=== PATIENT | female | born 1945 | race Caucasian/White ===

== ENCOUNTER 2022-09-10 12:01 | Emergency (ER) | payer MEDICARE, OTHER ==
--- NOTE | 2022-09-10 12:39 | XRAY Report ---
PROCEDURE: Chest 2 View X-Ray INDICATIONS: SOA/COUGHING NON PRODUCTIVE TECHNIQUE: 2 views of the chest were acquired. COMPARISON: None. FINDINGS: Surgical changes and devices: None. Lungs and pleura: No pleural effusions or pneumothorax. Lungs are clear. Mediastinum: Mediastinal contours appear normal. Heart size is normal. Large retrocardiac hiatal hernia present. Mild vascular congestion Bones and chest wall: No suspicious bony lesions. Overlying soft tissues appear unremarkable. IMPRESSION: Mild vascular congestion. Large retrocardiac hiatal hernia Reviewed by: Brandon Stinson MD on 09/10/2022 11:38 AM PATRIZIA Approved by: Brandon Stinson MD on 09/10/2022 11:38 AM PATRIZIA Station ID: [id number]
--- NOTE | 2022-09-10 15:09 | ED Physician Documentation ---
History of Present Illness - Stated complaint Stated Complaint: SOA - Chief complaint Chief Complaint: Resp - Additonal information Additional information: This is a very plesant 76-year-old female who has a history of asthma, chronic bronchitis, pulmonary hypertension presents to the emergency department for evaluation of worsening shortness of air, cough and ankle swelling. These worsening symptoms have been present now for about a week. Patient recently moved to [facility] 1 month ago from [facility]. She reports that while there she found that she was getting progressively short of air and they found that she was very anemic. In order to diagnose a cause for the anemia she underwent a colonoscopy July 11 which was negative. She subsequently received iron transfusions for the anemia. She has not scheduled an appointment with a primary doctor at the beginning of October. She did go to our local walk-in clinics for evaluation of the shortness of air and was started on doxycycline on the . She went back today because the doxycycline had not improved her symptoms and she was referred to the ER. Meds: Symbicort, fluticasone, DuoNebs, albuterol, Viagra, atorvastatin, losartan, pantoprazole Review of Systems Constitutional: denies: Fever Ears: reports: Reviewed and negative Nose: reports: Reviewed and negative Cardiac: denies: Chest pain / pressure, Palpitations Respiratory: reports: Dyspnea, Cough. denies: Hemoptysis, Wheezing GI: reports: Reviewed and negative : reports: Reviewed and negative Skin: reports: Reviewed and negative Musculoskeletal: reports: Reviewed and negative Neurologic: reports: Reviewed and negative PD PAST MEDICAL HISTORY - Past Medical History Past Medical History: Yes Cardiovascular: Hypertension, High cholesterol Respiratory: Asthma, COPD Neuro: None Endocrine/Autoimmune: None GI: GERD MATCH MARKER: None : Incontinence HEENT: None Psych: None Musculoskeletal: None Derm: None - Past Surgical History Past Surgical History: Yes - Allergies Allergies/Adverse Reactions: Allergies Allergy/AdvReac Type Severity Reaction Status Date / Time clarithromycin [From Biaxin] AdvReac Unknown Verified 09/10/22 12:16 dexamethasone AdvReac Unknown Verified 09/10/22 12:17 levofloxacin [From Levaquin] AdvReac Unknown Verified 09/10/22 12:16 sertraline [From Zoloft] AdvReac Unknown Verified 09/10/22 12:17 Sulfa (Sulfonamide AdvReac Unknown Verified 09/10/22 12:17 Antibiotics) Tricyclic Antidepressants AdvReac Unknown Verified 09/10/22 12:18 and Tricy - Social History Does the pt smoke?: No Smoking Status: Never smoker Does the pt drink ETOH?: Yes Does the pt have substance abuse?: No - Immunizations Immunizations are current?: Yes - POLST Patient has POLST: No PD ED PE NORMAL - General General: Alert and oriented X 3, No acute distress. No: Well developed/nourished (Appears much older than stated age) - HEENT HEENT: Atraumatic - Neck Neck: Supple, no meningeal sign - Cardiac Cardiac: RRR, No murmur, Strong equal pulses - Respiratory Respiratory: No respiratory distress, Clear bilaterally - Abdomen Abdomen: Normal bowel sounds, Soft - Back Back: No CVA TTP - Derm Derm: Normal color, Warm and dry - Extremities Extremities: No deformity - Neuro Neuro: Alert and oriented X 3, wire inserter 2-12 intact Eye Opening: Spontaneous Motor: Obeys Commands Verbal: Oriented GCS Score: 15 Results - Vitals Vitals: Vital Signs - 24 hr 09/10/22 09/10/22 12:06 14:48 Temperature 36.6 C Heart Rate 76 Respiratory 20 19 Rate Blood Pressure 127/47 L O2 Saturation 99 Oxygen O2 Source Room air - EKG (time done) 1526 EKG releavant findings:: EKG personally interpreted by author of this note. Relevant findings are: Rate: Rate (enter#) (69) Rhythm: NSR [place]: Normal Intervals: No: Prolonged QT QRS: Normal Ischemia: Non specific changes Compare to prior EKG: Old EKG unavailable Computer interpretation: Agree with computer - Labs Labs: Laboratory Tests 09/10/22 09/10/22 09/10/22 15:22 15:22 15:22 WBC 11.0 H RBC 2.98 L Hgb 7.5 L Hct 24.5 L MCV 82.2 MCH 25.2 L MCHC 30.6 L RDW 15.9 H Plt Count 351 MPV 11.2 H Neut # (Auto) 9.8 H Lymph # (Auto) 1.0 L [place] # (Auto) 0.1 Eos # (Auto) 0.0 Baso # (Auto) 0.0 Absolute Nucleated RBC 0.00 Nucleated RBC % 0.0 Sodium 133 L Potassium 3.9 Chloride 104 Carbon Dioxide 23 Anion Gap 6.0 BUN 30 H Creatinine 0.8 Estimated GFR (MDRD) 70 L Glucose 127 H Calcium 8.8 Total Bilirubin 0.5 AST 23 ALT 22 Alkaline Phosphatase 70 Troponin I High Sens 5.5 B-Natriuretic Peptide Total Protein 7.3 Albumin 3.8 Globulin 3.5 Albumin/Globulin Ratio 1.1 Lipase 27 09/10/22 15:22 WBC RBC Hgb Hct MCV MCH MCHC RDW Plt Count MPV Neut # (Auto) Lymph # (Auto) [place] # (Auto) Eos # (Auto) Baso # (Auto) Absolute Nucleated RBC Nucleated RBC % Sodium Potassium Chloride Carbon Dioxide Anion Gap BUN Creatinine Estimated GFR (MDRD) Glucose Calcium Total Bilirubin AST ALT Alkaline Phosphatase Troponin I High Sens B-Natriuretic Peptide 121 H Total Protein Albumin Globulin Albumin/Globulin Ratio Lipase - Rads (name of study) 2v CXR Relevant Findings:: Final report received (Mild vascular congestion. Large retrocardiac hiatal hernia.) PD Medical Decision Making - ED course Complexity details: reviewed results, re-evaluated patient, d/w patient ED course: [id number] female was referred to the emergency department for evaluation of dyspnea. She does have a known history of pulmonary hypertension. She also has known chronic bronchitis. Was recently started on doxycycline. She is scheduled to establish with a PCP tomorrow. She was told before she moved to [facility] that she had anemia and she underwent a colonoscopy that showed no evidence of bleeding or polyps. Today in the emergency department a chest x-ray was obtained that showed no findings of pneumonia though she has a large hiatal hernia. A CBC and electrolytes were completed. Per my interpretation she has a marked anemia with a hemoglobin of 7.5 and a crit of 24.5. Normal platelets. Her electrolytes show a sodium of 133 and a BUN of 30. Normal creatinine. Her BNP is mildly elevated at 12, likely secondary to pulmonary HTN. I suspect the patient does have some degree of right-sided heart failure she has small amount of pitting edema in her ankles. However her room air saturations are 99% and clinically she does not warrant admission to the hospital. I did offer the patient a blood transfusion for hemoglobin of 7.5 but she declined that today as she is seeing her primary care doctor tomorrow. I discussed with her that she would need referral to pulmonology, cardiology and hematology all for evaluation of the anemia and further management of her pulmonary hypertension. She and her were comfortable with this plan and the usual emergent return precautions for worsening symptoms were discussed. Departure - Departure Disposition: 01 Home, Self Care Clinical Impression: History of pulmonary hypertension Dyspnea Qualifiers: Dyspnea type: unspecified Qualified Code(s): R06.00 - Dyspnea, unspecified Anemia Qualifiers: Anemia type: unspecified type Qualified Code(s): D64.9 - Anemia, unspecified Condition: Stable Comments: Tammi horan are seen today in the emergency department for shortness of air. You do have a history of pulmonary hypertension as well as chronic bronchitis. When you were living in [place] you were told that you are anemic and you received an iron transfusion. I do not have access to your labs in [place] but today your hemoglobin is 7.5. Because you have had a normal colonoscopy and your iron levels were normal its not clear what the cause of your anemia is but you do need referral to a veterinary science teacher/oncologist for this. You are offered a blood transfusion today in the emergency department and you have declined that. You will see your primary care doctor tomorrow. If at any point however you find that your shortness of air is worsening, you develop chest pain or have fainting episodes you must return immediately to the ER and a transfusion can be ordered. Because of your history of pulmonary hypertension you would benefit from referral to a starch cooker and/or a power manager. Please discuss this with your primary care doctor tomorrow. In the meantime you can continue to take all your other usual medications. Forms: PCP List
[2022-09-10 15:29] LABS: BASOPHILS % (AUTO) 0.2 %; HCT - HEMATOCRIT 24.5 % (37.0-47.0); HGB - HEMOGLOBIN 7.5 g/dL (12.0-16.0); LYMPHOCYTES % (AUTO) 9.2 %; MEAN CORPUSCULAR HEMOGLOBIN 25.2 pg (27.0-31.0); MEAN CORPUSCULAR HGB CONC 30.6 g/dL (32.0-36.0); MEAN CORPUSCULAR VOLUME 82.2 fL (81.0-99.0); MEAN PLATELET VOLUME 11.2 fL (7.9-10.8); MONOCYTES # (AUTO) 0.1 10^3/uL (0.0-1.0); MONOCYTES % (AUTO) 1.1 %; NEUTROPHILS # (AUTO) 9.8 10^3/uL (1.5-6.6); NEUTROPHILS % (AUTO) 89.1 %; PLT - PLATELET COUNT 351 10^3/uL (130-450); RED BLOOD COUNT 2.98 10^6/uL (4.20-5.40); RED CELL DISTRIBUTION WIDTH 15.9 % (12.0-15.0)
[2022-09-10 15:43] LABS: ALBUMIN 3.8 g/dL (3.2-5.5); ALBUMIN/GLOBULIN RATIO 1.1 (1.0-2.2); BILIRUBIN,TOTAL 0.5 mg/dL (0.2-1.0); CALCIUM 8.8 mg/dL (8.5-10.3); CREATININE 0.8 mg/dL (0.4-1.0); POTASSIUM 3.9 mmol/L (3.5-5.0); TOTAL PROTEIN 7.3 g/dL (6.7-8.2)
[2022-09-10 16:23] VITALS: BP 153/71
== END 2022-09-10 16:21 | disposition home or self-care (01) ==
LOC: ED 12:01
DX: I27.20 Pulmonary hypertension, unspecified (principal); R06.00 Dyspnea, unspecified; D64.9 Anemia, unspecified
CPT/HCPCS: 36415; 80053; 83690; 83880; 84484; 85025; 93005; 99284

== ENCOUNTER 2022-09-11 16:09 | Outpatient (CLI) | payer MEDICARE, OTHER ==
[2022-09-11 20:52] LABS: BASOPHILS % (AUTO) 0.2 %; HCT - HEMATOCRIT 24.2 % (37.0-47.0); HGB - HEMOGLOBIN 7.4 g/dL (12.0-16.0); LYMPHOCYTES # (AUTO) 1.2 10^3/uL (1.5-3.5); LYMPHOCYTES % (AUTO) 12.9 %; MEAN CORPUSCULAR HEMOGLOBIN 25.2 pg (27.0-31.0); MEAN CORPUSCULAR HGB CONC 30.6 g/dL (32.0-36.0); MEAN CORPUSCULAR VOLUME 82.3 fL (81.0-99.0); MEAN PLATELET VOLUME 12.5 fL (7.9-10.8); MONOCYTES # (AUTO) 0.3 10^3/uL (0.0-1.0); MONOCYTES % (AUTO) 2.7 %; NEUTROPHILS % (AUTO) 83.9 %; PLT - PLATELET COUNT 409 10^3/uL (130-450); RED BLOOD COUNT 2.94 10^6/uL (4.20-5.40); WHITE BLOOD COUNT 9.5 x10^3/uL (4.8-10.8)
[2022-09-11 20:57] LABS: ALBUMIN/GLOBULIN RATIO 1.1 (1.0-2.2); ALKALINE PHOSPHATASE 71 IU/L (42-121); ALT ALANINE AMINOTRANSFERASE 15 IU/L (10-60); AST ASPARTATE AMINOTRANSFERASE 14 IU/L (10-42); BILIRUBIN,TOTAL 0.3 mg/dL (0.2-1.0); BUN - BLOOD UREA NITROGEN 33 mg/dL (6-20); CALCIUM 9.5 mg/dL (8.5-10.3); CARBON DIOXIDE - CO2 26 mmol/L (21-32); CHLORIDE 103 mmol/L (101-111); CHOL/HDL RATIO 2.3 (<4.4); CHOLESTEROL 174 mg/dL; CREATININE 0.9 mg/dL (0.6-1.3); GFR - MDRD 61 (>89); GLUCOSE 132 mg/dL (74-104); HDL CHOLESTEROL 75 mg/dL; LDL CHOLESTEROL,CALCULATED 82 mg/dL; LDL/HDL RATIO 1.1 (<4.4); POTASSIUM 4.7 mmol/L (3.5-4.5); SODIUM 132 mmol/L (135-145); TOTAL PROTEIN 7.5 g/dL (6.4-8.9); TRIGLYCERIDES 83 mg/dL (48-352); VLDL CHOLESTEROL 17 mg/dL
[2022-09-11 22:12] LABS: ESTIMATED AVERAGE GLUCOSE 111 mg/dL (70-100); HEMOGLOBIN A1c% 5.5 % (4.27-6.07)
[2022-09-12 11:35] LABS: IRON < 10 ug/dL (50-212); TOTAL IRON BINDING CAPACITY 668 ug/dL (250-450); TRANSFERRIN 477 mg/dL (203-362)
[2022-09-12 11:56] LABS: FERRITIN 3.3 ng/mL (11.0-306.8)
== END 2022-09-11 16:10 | disposition home or self-care (01) ==
LOC: LAB.N 16:09
PROVIDERS: ATTEND Nurse Practitioner Family
DX: D64.9 Anemia, unspecified (principal); E11.69 Type 2 diabetes mellitus with other specified complication; E11.22 Type 2 diabetes mellitus with diabetic chronic kidney disease; N18.9 Chronic kidney disease, unspecified; I27.0 Primary pulmonary hypertension; E78.2 Mixed hyperlipidemia
CPT/HCPCS: 36415; 80053; 80061; 82728; 83036; 83540; 83721; 84443; 84466; 85025; 86900; 86901

== ENCOUNTER 2022-09-12 14:29 | Emergency (ER) | payer MEDICARE, OTHER ==
--- NOTE | 2022-09-12 15:21 | ED Physician Documentation ---
History of Present Illness - Stated complaint Stated Complaint: SOA/WEAKNESS - Chief complaint Chief Complaint: General - History obtained from History obtained from: Patient - History of Present Illness Timing: How many days ago (several) Pain level max: 0 Pain level now: 0 - Additonal information Additional information: Patient is a 76-year-old female who presents to the emergency department stating that she has had a history of anemia in the past and had iron infusions when living in [place]. She states that over the past several days she has become short of breath and feeling generally weak. Her hemoglobin was down to 7.4 yesterday, 7.5 the day before that. She is scheduled for an iron infusion to [place] but feels that she is too weak and too short of breath. She is here requesting a blood transfusion. She states she has had a normal colonoscopy, endoscopy and CT scans with no cause found. Review of Systems Constitutional: denies: Fever, Chills GI: denies: Vomiting, Diarrhea Skin: denies: Rash Musculoskeletal: denies: Neck pain, Back pain Neurologic: denies: Headache PD PAST MEDICAL HISTORY - Past Medical History Cardiovascular: Hypertension, High cholesterol Respiratory: Asthma, COPD Neuro: None Endocrine/Autoimmune: None GI: GERD CATERING [place]: None : Incontinence HEENT: None Psych: None Musculoskeletal: None Derm: None - Past Surgical History Past Surgical History: Yes - Present Medications Home Medications: Ambulatory Orders Medication Instructions Recorded Confirmed Albuterol Sulfate [Proair 1 - 2 puffs IH Q4HR PRN 09/12/22 09/12/22 Respiclick] Atorvastatin Calcium 40 mg PO HS 09/12/22 09/12/22 Fluticasone [Flonase] 1 sprays NORM DAILY 09/12/22 09/12/22 Ipratropium/Albuterol [Duoneb] 3 ml INH BID 09/12/22 09/12/22 Losartan [Cozaar] 50 mg PO BID 09/12/22 09/12/22 Montelukast [Singulair] 10 mg PO DAILY 09/12/22 09/12/22 Pantoprazole [Protonix] 40 mg PO DAILY 09/12/22 09/12/22 Sildenafil Citrate [Sildenafil] 20 mg PO TID 09/12/22 09/12/22 - Allergies Allergies/Adverse Reactions: Allergies Allergy/AdvReac Type Severity Reaction Status Date / Time clarithromycin [From Biaxin] AdvReac Unknown Verified 09/12/22 14:33 dexamethasone AdvReac Unknown Verified 09/12/22 14:33 levofloxacin [From Levaquin] AdvReac Unknown Verified 09/12/22 14:33 sertraline [From Zoloft] AdvReac Unknown Verified 09/12/22 14:33 Sulfa (Sulfonamide AdvReac Unknown Verified 09/12/22 14:33 Antibiotics) Tricyclic Antidepressants AdvReac Unknown Verified 09/12/22 14:33 and Tricy - Social History Does the pt smoke?: No Smoking Status: Never smoker Does the pt drink ETOH?: Yes Does the pt have substance abuse?: No - Immunizations Immunizations are current?: Yes - POLST Patient has POLST: No PD ED PE NORMAL - Vitals Vital signs reviewed: Yes - General General: Alert and oriented X 3, No acute distress - HEENT HEENT: Moist mucous membranes, Other (pale appearing) - Neck Neck: Supple, no meningeal sign - Cardiac Cardiac: RRR, Strong equal pulses - Respiratory Respiratory: No respiratory distress, Clear bilaterally - Abdomen Abdomen: Soft, Non tender, Non distended - Derm Derm: Warm and dry - Neuro Neuro: Alert and oriented X 3 - Psych Psych: Normal mood, Normal affect Results - Vitals Vitals: Vital Signs - 24 hr 09/12/22 09/12/22 09/12/22 14:33 16:36 17:03 Temperature 36.9 C 36.1 C L Heart Rate 68 78 Heart Rate [ Monitoring electrodes] Respiratory 22 25 H 20 Rate Blood Pressure 123/50 L 119/57 L Blood Pressure 130/61 [Right Brachial artery] O2 Saturation 98 99 100 09/12/22 09/12/22 09/12/22 17:04 17:19 18:00 Temperature 36.1 C L 36.2 C L Heart Rate 78 Heart Rate [ 72 70 Monitoring electrodes] Respiratory 18 18 Rate Blood Pressure 126/80 Blood Pressure 136/48 H [Right Brachial artery] O2 Saturation 100 98 09/12/22 19:40 Temperature 36.4 C L Heart Rate Heart Rate [ 65 Monitoring electrodes] Respiratory 16 Rate Blood Pressure Blood Pressure 129/59 L [Right Brachial artery] O2 Saturation 98 Oxygen O2 Source Room air - Labs Labs: Laboratory Tests 09/12/22 15:26 Blood Type A POSITIVE Antibody Screen NEGATIVE Crossmatch IS Only See Detail PD Medical Decision Making - ED course Complexity details: reviewed results, re-evaluated patient, considered differential, d/w patient ED course: Patient with known anemia, hemoglobin under 8 on last 2 blood draws yesterday and 2 days ago. We will transfuse a unit of packed red blood cells here. Patient tolerated the transfusion well. No adverse effects. Patient feels better. She has her iron infusion in the morning. Recommend that she follow-up with her PCP for further care. Patient counseled regarding signs and symptoms for which I believe and urgent re-evaluation would be necessary. Patient with good understanding of and agreement to plan and is comfortable going home at this time This document was made in part using voice recognition software. While efforts are made to proofread this document, sound alike and grammatical errors may occur. Departure - Departure Disposition: 01 Home, Self Care Clinical Impression: Anemia Qualifiers: Anemia type: unspecified type Qualified Code(s): D64.9 - Anemia, unspecified Condition: Good Instructions: ED Anemia Iron Deficiency Follow-Up: Eleanor Maguire ARNP [Primary Care Provider] - Within 1 week Comments: You received a unit of blood today. Please follow-up with the [facility] tomorrow for your iron infusion as scheduled. Please follow-up with your doctor for further evaluation of your anemia. Forms: PCP List Discharge Date/Time: 09/12/22 19:50
[2022-09-12] MEDS ORDERED: BENZONATATE 100 MG CAPSULE PO STA (18:04)
[2022-09-12 19:51] VITALS: BP 129/59
== END 2022-09-12 19:50 | disposition home or self-care (01) ==
LOC: ED 14:29
DX: D64.9 Anemia, unspecified (principal); I10 Essential (primary) hypertension; E78.00 Pure hypercholesterolemia, unspecified; J44.9 Chronic obstructive pulmonary disease, unspecified; Z79.899 Other long term (current) drug therapy
CPT/HCPCS: 36415; 36430; 86850; 86900; 86901; 86920; 99284; 99285; A9270; P9016

== ENCOUNTER 2022-09-24 09:31 | Outpatient (CLI) | payer MEDICARE, OTHER ==
[2022-09-24 12:20] LABS: BASOPHILS # (AUTO) 0.1 10^3/uL (0.0-0.1); EOSINOPHILS # (AUTO) 0.3 10^3/uL (0.0-0.7); EOSINOPHILS % (AUTO) 5.3 %; HCT - HEMATOCRIT 27.7 % (37.0-47.0); HGB - HEMOGLOBIN 8.2 g/dL (12.0-16.0); LYMPHOCYTES # (AUTO) 1.4 10^3/uL (1.5-3.5); LYMPHOCYTES % (AUTO) 23.1 %; MEAN CORPUSCULAR HEMOGLOBIN 25.3 pg (27.0-31.0); MEAN CORPUSCULAR HGB CONC 29.6 g/dL (32.0-36.0); MEAN CORPUSCULAR VOLUME 85.5 fL (81.0-99.0); MEAN PLATELET VOLUME 12.6 fL (7.9-10.8); MONOCYTES # (AUTO) 0.5 10^3/uL (0.0-1.0); MONOCYTES % (AUTO) 8.1 %; NEUTROPHILS # (AUTO) 3.8 10^3/uL (1.5-6.6); NEUTROPHILS % (AUTO) 62.2 %; PLT - PLATELET COUNT 320 10^3/uL (130-450); RED BLOOD COUNT 3.24 10^6/uL (4.20-5.40); RED CELL DISTRIBUTION WIDTH 18.9 % (12.0-15.0); WHITE BLOOD COUNT 6.1 x10^3/uL (4.8-10.8)
[2022-09-24 12:45] LABS: CALCIUM 9.1 mg/dL (8.5-10.3); CREATININE 0.9 mg/dL (0.6-1.3); POTASSIUM 4.1 mmol/L (3.5-4.5)
[2022-09-24 12:50] LABS: FERRITIN 28.4 ng/mL (11.0-306.8)
== END 2022-09-24 09:32 | disposition home or self-care (01) ==
LOC: LAB.N 09:31
PROVIDERS: ATTEND Nurse Practitioner Family
DX: E87.5 Hyperkalemia (principal); N18.9 Chronic kidney disease, unspecified; D50.9 Iron deficiency anemia, unspecified
CPT/HCPCS: 36415; 80048; 82728; 83540; 84466; 85025

== ENCOUNTER 2022-10-24 15:31 | Outpatient (CLI) | payer MEDICARE, OTHER ==
[2022-10-24 17:49] LABS: BASOPHILS # (AUTO) 0.1 10^3/uL (0.0-0.1); EOSINOPHILS # (AUTO) 0.4 10^3/uL (0.0-0.7); EOSINOPHILS % (AUTO) 5.6 %; HCT - HEMATOCRIT 25.2 % (37.0-47.0); HGB - HEMOGLOBIN 7.4 g/dL (12.0-16.0); LYMPHOCYTES # (AUTO) 1.7 10^3/uL (1.5-3.5); LYMPHOCYTES % (AUTO) 26.9 %; MEAN CORPUSCULAR HEMOGLOBIN 22.6 pg (27.0-31.0); MEAN CORPUSCULAR HGB CONC 29.4 g/dL (32.0-36.0); MEAN CORPUSCULAR VOLUME 77.1 fL (81.0-99.0); MEAN PLATELET VOLUME 12.1 fL (7.9-10.8); MONOCYTES # (AUTO) 0.5 10^3/uL (0.0-1.0); MONOCYTES % (AUTO) 8.2 %; NEUTROPHILS # (AUTO) 3.6 10^3/uL (1.5-6.6); NEUTROPHILS % (AUTO) 58.1 %; PLT - PLATELET COUNT 319 10^3/uL (130-450); RED BLOOD COUNT 3.27 10^6/uL (4.20-5.40); RED CELL DISTRIBUTION WIDTH 19.2 % (12.0-15.0); WHITE BLOOD COUNT 6.2 x10^3/uL (4.8-10.8)
[2022-10-24 17:55] LABS: ALBUMIN 3.9 g/dL (3.2-5.5); ALBUMIN/GLOBULIN RATIO 1.4 (1.0-2.2); BILIRUBIN,TOTAL 0.3 mg/dL (0.2-1.0); CALCIUM 9.3 mg/dL (8.5-10.3); CREATININE 0.9 mg/dL (0.6-1.3); POTASSIUM 4.3 mmol/L (3.5-4.5); TOTAL PROTEIN 6.7 g/dL (6.4-8.9)
[2022-10-24 18:18] LABS: FERRITIN 4.1 ng/mL (11.0-306.8)
== END 2022-10-24 15:32 | disposition home or self-care (01) ==
LOC: LAB.N 15:31
PROVIDERS: ATTEND Nurse Practitioner Family
DX: E87.5 Hyperkalemia (principal); N18.9 Chronic kidney disease, unspecified; D50.9 Iron deficiency anemia, unspecified
CPT/HCPCS: 36415; 80053; 82728; 83540; 84466; 85025

== ENCOUNTER 2022-11-12 16:01 | Emergency (ER) | payer MEDICARE, OTHER ==
[2022-11-12 16:51] LABS: BASOPHILS % (AUTO) 0.6 %; EOSINOPHILS # (AUTO) 0.4 10^3/uL (0.0-0.7); EOSINOPHILS % (AUTO) 5.9 %; LYMPHOCYTES % (AUTO) 32.6 %; MEAN CORPUSCULAR HEMOGLOBIN 20.7 pg (27.0-31.0); MEAN CORPUSCULAR HGB CONC 28.4 g/dL (32.0-36.0); MEAN CORPUSCULAR VOLUME 72.8 fL (81.0-99.0); MEAN PLATELET VOLUME 11.1 fL (7.9-10.8); MONOCYTES # (AUTO) 0.6 10^3/uL (0.0-1.0); MONOCYTES % (AUTO) 9.9 %; NEUTROPHILS # (AUTO) 3.2 10^3/uL (1.5-6.6); NEUTROPHILS % (AUTO) 50.8 %; PLT - PLATELET COUNT 380 10^3/uL (130-450); RED BLOOD COUNT 2.61 10^6/uL (4.20-5.40); RED CELL DISTRIBUTION WIDTH 19.7 % (12.0-15.0); WHITE BLOOD COUNT 6.3 x10^3/uL (4.8-10.8)
[2022-11-12 16:53] LABS: HGB - HEMOGLOBIN 5.4 g/dL (12.0-16.0)
--- NOTE | 2022-11-12 16:53 | ED Physician Documentation ---
History of Present Illness - Stated complaint Stated Complaint: LOW HEMOGLOBIN? - Chief complaint Chief Complaint: General - History obtained from History obtained from: Patient, Family - History of Present Illness Timing: Today Pain level max: 0 Pain level now: 0 - Additonal information Additional information: 77-year-old female with longstanding history of chronic anemia, appears likely secondary to iron deficiency according to her records from hematology. She has been receiving iron infusions but today on outpatient lab draw her hemoglobin was noted to be 5.5. She was sent here for further care and to receive a blood transfusion. Patient states she has had some shortness of breath. No chest pain. Denies any blood in the stool. No headache. No head injuries. No fevers or chills. Review of Systems Constitutional: denies: Fever, Chills Throat: denies: Sore throat Cardiac: denies: Chest pain / pressure, Palpitations Respiratory: reports: Dyspnea. 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 : Incontinence HEENT: None Psych: None Musculoskeletal: None Derm: None - Past Surgical History Past Surgical History: Yes - Present Medications Home Medications: Ambulatory Orders Medication Instructions Recorded Confirmed Albuterol Sulfate [Proair 1 - 2 puffs IH Q4HR PRN 09/12/22 11/12/22 Respiclick] Atorvastatin Calcium 40 mg PO HS 09/12/22 11/12/22 Fluticasone [Flonase] 1 sprays NORM DAILY 09/12/22 11/12/22 Ipratropium/Albuterol [Duoneb] 3 ml INH BID 09/12/22 11/12/22 Losartan [Cozaar] 50 mg PO BID 09/12/22 11/12/22 Pantoprazole [Protonix] 40 mg PO BID 09/12/22 11/12/22 Sildenafil Citrate [Sildenafil] 20 mg PO TID 09/12/22 11/12/22 B Complex W-C No.20/Folic Acid 1 mg PO DAILY 11/12/22 11/12/22 [Wescaps Capsule] Budesonide/Formoterol Fumarate 10.2 gm IH DAILY 11/12/22 11/12/22 [Symbicort 160-4.5 Mcg Inhaler] Glucosam/Larry-Msm1/C/Martin/Bosw 1 each PO DAILY 11/12/22 11/12/22 [Tdibflckulv-Svyttrvqbxa-UDP Tb] Melatonin 3 mg PO HS PRN 11/12/22 11/12/22 guaiFENesin [Mucinex] 600 mg PO DAILY PRN 11/12/22 11/12/22 - Allergies Allergies/Adverse Reactions: Allergies Allergy/AdvReac Type Severity Reaction Status Date / Time clarithromycin [From Biaxin] AdvReac Unknown Verified 11/12/22 16:11 dexamethasone AdvReac Unknown Verified 11/12/22 16:11 levofloxacin [From Levaquin] AdvReac Unknown Verified 11/12/22 16:11 sertraline [From Zoloft] AdvReac Unknown Verified 11/12/22 16:11 Sulfa (Sulfonamide AdvReac Unknown Verified 11/12/22 16:11 Antibiotics) Tricyclic Antidepressants AdvReac Unknown Verified 11/12/22 16:11 and Tricy - Social History Does the pt smoke?: No Smoking Status: Never smoker Does the pt drink ETOH?: Yes Does the pt have substance abuse?: No - Immunizations Immunizations are current?: Yes - POLST Patient has POLST: No PD ED PE NORMAL - Vitals Vital signs reviewed: Yes - General General: Alert and oriented X 3, No acute distress - HEENT HEENT: Moist mucous membranes - Neck Neck: Supple, no meningeal sign - Cardiac Cardiac: RRR, Strong equal pulses - Respiratory Respiratory: No respiratory distress, Clear bilaterally - Abdomen Abdomen: Soft, Non tender, Non distended - Derm Derm: Warm and dry - Extremities Extremities: No edema - Neuro Neuro: Alert and oriented X 3 - Psych Psych: Normal mood, Normal affect Results - Vitals Vitals: Vital Signs - 24 hr 11/12/22 11/12/22 11/12/22 16:12 16:15 16:45 Temperature 36.6 C 36.6 C Heart Rate 68 68 67 Heart Rate [ Monitoring electrodes] Respiratory 20 20 14 Rate Blood Pressure 134/56 H 134/56 H 138/73 H Blood Pressure [Right Brachial artery] O2 Saturation 97 97 99 10/03/23 10/03/23 10/03/23 17:15 17:30 18:00 Temperature 36.5 C 36.6 C Heart Rate 65 68 63 Heart Rate [ Monitoring electrodes] Respiratory 18 22 17 Rate Blood Pressure 138/73 H 136/61 H 162/74 H Blood Pressure [Right Brachial artery] O2 Saturation 98 98 100 11/12/22 11/12/22 11/12/22 18:13 18:30 18:36 Temperature 36.6 C 36.8 C Heart Rate 67 Heart Rate [ 60 67 Monitoring electrodes] Respiratory 20 17 17 Rate Blood Pressure 135/60 H Blood Pressure 162/74 H 135/60 H [Right Brachial artery] O2 Saturation 100 97 97 11/12/22 11/12/22 11/12/22 18:54 19:00 19:30 Temperature Heart Rate 72 67 Heart Rate [ 69 Monitoring electrodes] Respiratory 23 23 24 Rate Blood Pressure 138/59 H 135/56 H Blood Pressure 135/60 H [Right Brachial artery] O2 Saturation 98 96 98 11/12/22 11/12/22 11/12/22 20:00 20:30 20:41 Temperature 36.8 C 36.7 C 36.8 C Heart Rate 74 79 Heart Rate [ 80 Monitoring electrodes] Respiratory 22 18 19 Rate Blood Pressure 136/64 H 142/70 H Blood Pressure 142/70 H [Right Brachial artery] O2 Saturation 99 96 98 11/12/22 11/12/22 11/12/22 20:54 21:00 21:04 Temperature 36.8 C 36.9 C Heart Rate 86 Heart Rate [ 71 87 Monitoring electrodes] Respiratory 16 14 24 Rate Blood Pressure 124/63 Blood Pressure 142/70 H 124/63 [Right Brachial artery] O2 Saturation 96 95 97 11/12/22 11/12/22 11/12/22 21:24 21:30 21:36 Temperature 36.8 C 36.8 C Heart Rate 87 Heart Rate [ 87 87 Monitoring electrodes] Respiratory 18 16 18 Rate Blood Pressure 128/55 L Blood Pressure 128/55 L 128/55 L [Right Brachial artery] O2 Saturation 96 95 96 11/12/22 11/12/22 11/12/22 22:00 22:30 23:00 Temperature 36.8 C 37.0 C Heart Rate 84 82 87 Heart Rate [ Monitoring electrodes] Respiratory 22 22 22 Rate Blood Pressure 138/62 H 134/60 H 133/56 H Blood Pressure [Right Brachial artery] O2 Saturation 100 100 97 11/12/22 11/12/22 11/12/22 23:06 23:08 23:30 Temperature 37.0 C 37.0 C Heart Rate 80 Heart Rate [ 87 87 Monitoring electrodes] Respiratory 22 22 17 Rate Blood Pressure 130/62 Blood Pressure 133/56 H 133/56 H [Right Brachial artery] O2 Saturation 97 97 100 11/13/22 00:00 Temperature Heart Rate 80 Heart Rate [ Monitoring electrodes] Respiratory 16 Rate Blood Pressure 130/68 Blood Pressure [Right Brachial artery] O2 Saturation 96 Oxygen O2 Source Room air - Labs Labs: Laboratory Tests 11/12/22 11/12/22 11/12/22 16:41 16:41 16:41 WBC 6.3 RBC 2.61 L Hgb 5.4 L* Hct 19.0 L* MCV 72.8 L MCH 20.7 L MCHC 28.4 L RDW 19.7 H Plt Count 380 MPV 11.1 H Neut # (Auto) 3.2 Lymph # (Auto) 2.0 [place] # (Auto) 0.6 Eos # (Auto) 0.4 Baso # (Auto) 0.0 Absolute Nucleated RBC 0.00 Nucleated RBC % 0.0 Sodium 136 Potassium 4.0 Chloride 105 Carbon Dioxide 26 Anion Gap 5.0 L BUN 19 Creatinine 0.7 Estimated GFR (MDRD) 81 L Glucose 90 Calcium 8.8 Blood Type A POSITIVE Antibody Screen NEGATIVE Crossmatch IS Only See Detail 11/12/22 23:36 WBC RBC Hgb 7.2 L Hct 23.0 L MCV MCH MCHC RDW Plt Count MPV Neut # (Auto) Lymph # (Auto) [place] # (Auto) Eos # (Auto) Baso # (Auto) Absolute Nucleated RBC Nucleated RBC % Sodium Potassium Chloride Carbon Dioxide Anion Gap BUN Creatinine Estimated GFR (MDRD) Glucose Calcium Blood Type Antibody Screen Crossmatch IS Only PD Medical Decision Making - ED course Complexity details: reviewed results, re-evaluated patient, considered differential, d/w patient, d/w family ED course: Patient with acute on chronic anemia. Baseline is around 7.4, down to 5.5 today. Given 2 units pRBC and hgb improved to baseline.Patient feels better. no complications. Patient counseled regarding signs and symptoms for which I believe and urgent re-evaluation would be necessary. Patient with good understanding of and agreement to plan and is comfortable going home at this time This document was made in part using voice recognition software. While efforts are made to proofread this document, sound alike and grammatical errors may occur. Departure - Departure Disposition: 01 Home, Self Care Clinical Impression: Anemia Qualifiers: Anemia type: unspecified type Qualified Code(s): D64.9 - Anemia, unspecified Condition: Good Instructions: ED Anemia Type Not Specified Follow-Up: Eleanor Maguire ARNP [Primary Care Provider] - Within 3 Days Comments: You received 2 units of blood today. Your hemoglobin has improved to approximately 7.2 which is near your baseline. Please follow-up tomorrow with your doctor in the [facility] clinic for further care. Please return if you worsen. Forms: PCP List Discharge Date/Time: 11/13/22 00:13
--- OUTSIDE RECORDS SUMMARY | 2022-11-12 16:55 | EXTERNAL MEDICAL SUMMARY RPT | Continuity of Care Document ---
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 Name Role Phone Andrez Eleanor Unavailable Unavailable Allergies and Intolerances date description facility reaction severity 2022-10-03 08:05:44 [facility] (no reactio n) Moderate 2022-10-03 08:05:44 [facility] (no reactio n) Severe 2022-10-03 08:05:44 [facility] (no reactio n) Moderate 2022-10-03 08:05:44 [facility] (no reactio n) Moderate 2022-10-03 08:05:44 [facility] (no reactio n) Severe 2022-10-03 08:05:44 [facility] (no reactio n) Moderate Medications date description facility 2022-10-03 00:00 Ipratropium-Albuterol [facility] 2022-10-03 00:00 Ipratropium-Albuterol [facility] 2022-10-03 00:00 Fluticasone Propionate [facility] 2022-10-03 00:00 Fluticasone Propionate [facility]00 [facility] 2022-10-03 00:00 [facility]22[facility]10-03 [facility] 00:00 Sildenafil (Pulm.Hypertension) [facility] 2022-10-03 00:00 Sildenafil (Pulm.Hypertension) [facility] 2022-10-03 00:00 Atorvastatin [facility] 2022-10-03 00:00 Atorvastatin [facility] 2022-10-03 00:00 Losartan [facility] 2022-10-03 00:00 [facility] Problems date description facility 2022-10-03 00:00 Iron deficiency anemia [facility] 2022-10-03 00:00 Iron deficiency anemia [facility] 2022-10-03 00:00 Primary pulmonary hypertension [facility] 2022-10-03 00:00 Primary pulmonary hypertension [facility] 2022-10-03 00:00 Chronic obstructive pulmonary d [facility] 2022-10-03 00:00 Chronic obstructive pulmonary d [facility] 2022-10-03 00:00 Chronic kidney disease [facility] 2022-10-03 00:00 Chronic kidney disease [facility] 2022-10-03 00:00 Shortness of breath [facility] 2022-10-03 00:00 Shortness of breath [facility] 2022-10-07 11:17 Iron deficiency anemia, unspeci [facility] 2022-10-07 11:17 Chronic obstructive pulmonary disease with (acute) exacerbat [facility] 2022-10-07 11:17 Dyspnea, unspecified [facility] pital Procedures date description facility 2022-10-07 00:00 CT chest without contrast [facility] Social History date description facility 2022-10-03 00:00 Never smoked tobacco (finding) [facility] 2022-10-03 00:00 Never smoked tobacco (finding) [facility] Vital Signs date measurement value units 2022-10-03 00:00 BMI 26.6 kg/m2 2022-10-03 00:00 BP_diastolic 56 mmHg 2022-10-03 00:00 BP_systolic 111 mmHg 2022-10-03 00:00 heart_rate 79 /min 2022-10-03 00:00 height_metric 158.75 cm 2022-10-03 00:00 height_standard 62.5 in 2022-10-03 00:00 o2_saturation 94 % 2022-10-03 00:00 weight_metric 67.13 kg 2022-10-03 00:00 weight_standard 148 lb
[2022-11-12 17:12] LABS: CALCIUM 8.8 mg/dL (8.5-10.3); CREATININE 0.7 mg/dL (0.6-1.3)
[2022-11-12 23:39] LABS: HGB - HEMOGLOBIN 7.2 g/dL (12.0-16.0)
[2022-11-13 00:04] VITALS: BP 130/68; O2SAT 96
== END 2022-11-13 00:13 | disposition home or self-care (01) ==
LOC: ED 16:01
DX: D64.9 Anemia, unspecified (principal); I10 Essential (primary) hypertension
CPT/HCPCS: 36415; 36430; 80048; 85014; 85018; 85025; 86850; 86900; 86901; 86920; 99283; 99285; P9016

== ENCOUNTER 2022-11-29 16:50 | Emergency (ER) | payer MEDICARE, OTHER ==
[2022-11-29 17:53] LABS: BASOPHILS # (AUTO) 0.1 10^3/uL (0.0-0.1); BASOPHILS % (AUTO) 1.1 %; EOSINOPHILS # (AUTO) 0.2 10^3/uL (0.0-0.7); EOSINOPHILS % (AUTO) 4.7 %; HCT - HEMATOCRIT 29.8 % (37.0-47.0); HGB - HEMOGLOBIN 8.7 g/dL (12.0-16.0); LYMPHOCYTES # (AUTO) 1.5 10^3/uL (1.5-3.5); LYMPHOCYTES % (AUTO) 31.4 %; MEAN CORPUSCULAR HGB CONC 29.2 g/dL (32.0-36.0); MEAN CORPUSCULAR VOLUME 82.1 fL (81.0-99.0); MEAN PLATELET VOLUME 10.9 fL (7.9-10.8); MONOCYTES # (AUTO) 0.6 10^3/uL (0.0-1.0); MONOCYTES % (AUTO) 11.8 %; NEUTROPHILS # (AUTO) 2.4 10^3/uL (1.5-6.6); PLT - PLATELET COUNT 340 10^3/uL (130-450); RED BLOOD COUNT 3.63 10^6/uL (4.20-5.40); RED CELL DISTRIBUTION WIDTH 29.9 % (12.0-15.0); WHITE BLOOD COUNT 4.7 x10^3/uL (4.8-10.8)
[2022-11-29 18:10] LABS: ALBUMIN/GLOBULIN RATIO 1.3 (1.0-2.2); BILIRUBIN,TOTAL 0.3 mg/dL (0.2-1.0); CALCIUM 9.4 mg/dL (8.5-10.3); CREATININE 0.8 mg/dL (0.6-1.3); POTASSIUM 4.2 mmol/L (3.5-4.5)
[2022-11-29 18:22] LABS: PLATELET ESTIMATE, MANUAL NORMAL (130-450,000) (NORMAL); PLATELET MORPHOLOGY NORMAL APPEARANCE (NORMAL); SLIDE REVIEW? Indicated
[2022-11-29 19:28] VITALS: BP 136/60; O2SAT 98
[2022-11-29 19:45] LABS: BILIRUBIN,URINE NEGATIVE (NEGATIVE); GLUCOSE, URINE (UA) NEGATIVE (NEGATIVE); KETONES,URINE (UA) NEGATIVE (NEGATIVE); LEUKOCYTE ESTERASE, URINE NEGATIVE (NEGATIVE); NITRITE,URINE NEGATIVE (NEGATIVE); OCCULT BLOOD,URINE NEGATIVE (NEGATIVE); PROTEIN,URINE NEGATIVE (NEGATIVE); UROBILINOGEN,URINE 0.2 (NORMAL) E.U./dL (NORMAL)
[2022-11-29 19:47] LABS: CLARITY,URINE CLEAR (CLEAR)
--- NOTE | 2022-11-29 19:53 | ED Physician Documentation ---
PD HPI CHEST PAIN - Stated complaint Stated Complaint: SOA/BACK PX - Chief complaint Chief Complaint: Abd Pain - History obtained from History obtained from: Patient - Additional information Additional information: 77-year-old woman with history of asthma, pulmonary hypertension, no other heart or lung problems. She states that occasionally she gets this left posterior chest pain when she has an asthma attack and it usually resolves after a nebulizer. Tonight it did not go away after her nebulizer and lasted about 2 hours in total, she is now pain-free and feeling back to her baseline with no increased shortness of breath over her usual. PD PAST MEDICAL HISTORY - Past Medical History Cardiovascular: Hypertension, High cholesterol Respiratory: Asthma, COPD Neuro: None Endocrine/Autoimmune: None GI: GERD HOME SERVICE ADVISOR: None : Incontinence HEENT: None Psych: None Musculoskeletal: None Derm: None - Past Surgical History Past Surgical History: Yes - Present Medications Home Medications: Ambulatory Orders Medication Instructions Recorded Confirmed Albuterol Sulfate [Proair 1 - 2 puffs IH Q4HR PRN 09/12/22 11/14/22 Respiclick] Atorvastatin Calcium 40 mg PO HS 09/12/22 11/14/22 Fluticasone [Flonase] 1 sprays NORM DAILY 09/12/22 11/14/22 Ipratropium/Albuterol [Duoneb] 3 ml INH BID 09/12/22 11/14/22 Losartan [Cozaar] 50 mg PO PRN PRN 09/12/22 11/14/22 Pantoprazole [Protonix] 40 mg PO PRN PRN 09/12/22 11/14/22 Sildenafil Citrate [Sildenafil] 20 mg PO TID 09/12/22 11/14/22 B Complex W-C No.20/Folic Acid 1 mg PO DAILY 11/12/22 11/14/22 [Wescaps Capsule] Budesonide/Formoterol Fumarate 10.2 gm IH DAILY 11/12/22 11/14/22 [Symbicort 160-4.5 Mcg Inhaler] Glucosam/Larry-Msm1/C/Martin/Bosw 1 each PO DAILY 11/12/22 11/14/22 [Wppbfgmrcvs-Wrbmxjwtmle-CQK Tb] Melatonin 3 mg PO HS PRN 11/12/22 11/14/22 guaiFENesin [Mucinex] 600 mg PO DAILY PRN 11/12/22 11/14/22 Aspirin [Aspirin Regimen] 81 mg PO DAILY 11/14/22 11/14/22 Montelukast [Singulair] 10 mg PO UD 11/14/22 11/14/22 - Allergies Allergies/Adverse Reactions: Allergies Allergy/AdvReac Type Severity Reaction Status Date / Time clarithromycin [From Biaxin] AdvReac Unknown Verified 11/12/22 16:11 dexamethasone AdvReac Unknown Verified 11/12/22 16:11 levofloxacin [From Levaquin] AdvReac Unknown Verified 11/12/22 16:11 sertraline [From Zoloft] AdvReac Unknown Verified 11/12/22 16:11 Sulfa (Sulfonamide AdvReac Unknown Verified 11/12/22 16:11 Antibiotics) Tricyclic Antidepressants AdvReac Unknown Verified 11/12/22 16:11 and Tricy - Social History Does the pt smoke?: No Smoking Status: Never smoker Does the pt drink ETOH?: Yes Does the pt have substance abuse?: No - Immunizations Immunizations are current?: Yes - POLST Patient has POLST: No PD ED PE NORMAL - Vitals Vital signs reviewed: Yes - General General: Alert and oriented X 3, No acute distress - Cardiac Cardiac: RRR, No murmur - Respiratory Respiratory: No respiratory distress, Other (Rhonchorous lungs throughout, very mild tenderness of the posterior chest wall on the left. No flank tenderness. No shingles rash.) - Abdomen Abdomen: Non tender - Extremities Extremities: No edema, No calf tenderness / cord - Neuro Neuro: Alert and oriented X 3, Normal speech Results - Vitals Vitals: Vital Signs - 24 hr 11/29/22 11/29/22 16:56 19:01 Temperature 36.5 C 36.5 C Heart Rate 66 64 Respiratory 22 20 Rate Blood Pressure 139/58 H 136/60 H O2 Saturation 97 98 Oxygen O2 Source Room air - Labs Labs: Laboratory Tests 11/29/22 11/29/22 11/29/22 17:47 17:47 19:30 WBC 4.7 L RBC 3.63 L Hgb 8.7 L Hct 29.8 L MCV 82.1 MCH 24.0 L MCHC 29.2 L RDW 29.9 H Plt Count 340 MPV 10.9 H Neut # (Auto) 2.4 Lymph # (Auto) 1.5 Rogers # (Auto) 0.6 Eos # (Auto) 0.2 Baso # (Auto) 0.1 Absolute Nucleated RBC 0.00 Nucleated RBC % 0.0 Manual Slide Review Indicated Platelet Estimate NORMAL (130-450,000) Platelet Morphology NORMAL APPEARANCE RBC Morph Micro Appear 1+ SCHISTOCYTES Sodium 137 Potassium 4.2 Chloride 104 Carbon Dioxide 28 Anion Gap 5.0 L BUN 17 Creatinine 0.8 Estimated GFR (MDRD) 70 L Glucose 112 H Calcium 9.4 Total Bilirubin 0.3 AST 29 ALT 22 Alkaline Phosphatase 93 Total Protein 7.0 Albumin 4.0 Globulin 3.0 Albumin/Globulin Ratio 1.3 Lipase 15 Urine Color YELLOW Urine Clarity CLEAR Urine pH 6.0 Ur Specific [place] 1.020 Urine Protein NEGATIVE Urine Glucose (UA) NEGATIVE Urine Ketones NEGATIVE Urine Occult Blood NEGATIVE Urine Nitrite NEGATIVE Urine Bilirubin NEGATIVE Urine Urobilinogen 0.2 (NORMAL) Ur Leukocyte Esterase NEGATIVE Ur Microscopic Review NOT INDICATED Urine Culture Comments NOT INDICATED PD Medical Decision Making - ED course ED course: PE is considered but her pain is gone, she is not more short of breath than usual. She has no tachycardia or hypoxemia, no leg symptoms consistent with DVT so I think this is unlikely. Her pain is resolved right now. Her thinks it is probably musculoskeletal as she has been having to put britches on their [place] because she is in heat. There is a lot of bending over to do that. Seems reasonable to check a chest x-ray, but at this point concern for serious illness is low especially since her pain is resolved. Her hemoglobin is better than priors, but she is anemic. CMP and urine are normal. Departure - Departure Disposition: 01 Home, Self Care Clinical Impression: Hiatal hernia Back pain Qualifiers: Back pain location: thoracic back pain Chronicity: acute Back pain laterality: left Qualified Code(s): M54.6 - Pain in thoracic spine Condition: Good Instructions: ED Acute Pain [facility] Comments: Your blood counts are better than they have been. The only other thing worth noting is that you do have a large hiatal hernia which may cause some of your pain. Your kidney function is actually very good tonight with a GFR of 70. Call your doctor to arrange a follow-up appointment, make the next available appointment. In the interim, return anytime if worse or if new symptoms develop. Forms: PCP List
--- NOTE | 2022-11-29 20:08 | XRAY Report ---
PROCEDURE: Chest 1 View X-Ray INDICATIONS: L chest pain TECHNIQUE: One view of the chest was acquired. COMPARISON: 09/10/2022. FINDINGS: Surgical changes and devices: None. Lungs and pleura: No pleural effusions or pneumothorax. Lungs are clear. Mediastinum: Mediastinal contours appear normal. Heart size is enlarged. Bones and chest wall: No suspicious bony lesions. Large hiatal hernia is seen. Overlying soft tissu es appear unremarkable. IMPRESSION: No acute cardiopulmonary process. Large hiatal hernia. Reviewed by: Afshin Villa MD on 11/29/2022 8:07 PM PDT Approved by: Afshin Villa MD on 11/29/2022 8:07 PM PDT Station ID: [id number]
== END 2022-11-29 20:17 | disposition home or self-care (01) ==
LOC: ED 16:50
DX: M54.6 Pain in thoracic spine (principal); K44.9 Diaphragmatic hernia without obstruction or gangrene
CPT/HCPCS: 36415; 80053; 81001; 81003; 83690; 85025; 87086; 99283; 99284

== ENCOUNTER 2023-06-18 16:51 | Outpatient (CLI) | payer MEDICARE, OTHER ==
[2023-06-18 21:02] LABS: CREATININE,URINE 33.7 mg/dL
[2023-06-18 21:03] LABS: CALCIUM 9.6 mg/dL (8.5-10.3); CREATININE 0.8 mg/dL (0.6-1.3); POTASSIUM 4.5 mmol/L (3.5-4.5)
[2023-06-18 21:04] LABS: MICROALBUMIN,URINE < 0.7 mg/dL
[2023-06-18 21:15] LABS: ESTIMATED AVERAGE GLUCOSE 120 mg/dL (70-100); HEMOGLOBIN A1c% 5.8 % (4.27-6.07)
== END 2023-06-18 16:52 | disposition home or self-care (01) ==
LOC: LAB.N 16:51
PROVIDERS: ATTEND Nurse Practitioner Family
DX: E11.69 Type 2 diabetes mellitus with other specified complication (principal)
CPT/HCPCS: 36415; 80048; 82043; 82570; 83036

== ENCOUNTER → 2023-07-22 | Outpatient (CLI) | payer MEDICARE, OTHER | LOC: LAB.N 08:00 | PROVIDERS: ATTEND Physician Assistant Medical | DX: B34.9 Viral infection, unspecified (principal) ==

== ENCOUNTER 2023-07-24 14:47 | Outpatient (CLI) | payer MEDICARE, OTHER ==
--- NOTE | 2023-07-24 15:34 | XRAY Report ---
PROCEDURE: Chest 2V INDICATIONS: ACUTE COUGH TECHNIQUE: 2 views of the chest were acquired. COMPARISON: 11/29/2022 FINDINGS: Surgical changes and devices: None. Lungs and pleura: No dense consolidation or pleural effusion. Mediastinum: Heart size is within normal limits. Large suspected hiatal hernia, with fluid level pro jecting in the lower mediastinum. Bones and chest wall: Degenerative findings. IMPRESSION: No acute radiographic abnormality. Presumed large hiatal hernia again seen. Reviewed by: Omid Ness MD on 07/24/2023 3:33 PM PDT Approved by: Omid Ness MD on 07/24/2023 3:33 PM PDT Station ID: [id number]
== END 2023-07-24 14:48 | disposition home or self-care (01) ==
LOC: DI 14:47
PROVIDERS: ATTEND Physician Assistant Medical
DX: R05.1 Acute cough (principal)

== ENCOUNTER 2023-10-06 12:24 | Emergency (ER) | payer MEDICARE, OTHER ==
[2023-10-06] MEDS ORDERED: methylPREDNISolone SUCCINATE 125 MG/2 ML VIAL ONE (13:09)
--- NOTE | 2023-10-06 16:04 | XRAY Report ---
PROCEDURE: X-RAY OF THE CHEST ONE VIEW INDICATIONS: PRIORS: 07/24/2023, 11/29/2022, 09/10/2022. REASON FOR EXAM: SOA AND WHEEZING TECHNIQUE: One view of the chest was acquired. COMPARISON: None. FINDINGS: Surgical changes and devices: None. Lungs and pleura: No pleural effusions or pneumothorax. Lungs are clear. Mediastinum: Mediastinal contours appear normal. Large hiatal hernia. Heart size is normal. Bones and chest wall: No suspicious bony lesions. Overlying soft tissues appear unremarkable. IMPRESSION: No acute cardiopulmonary process. Large hiatal hernia. Reviewed by: Jd Andre MD on 10/06/2023 12:25 PM PDT Approved by: Jd Andre MD on 10/06/2023 12:25 PM PDT Station ID: [id number]
[2023-10-06 16:06] LABS: CORONAVIRUS 229E-RESP PCR NOT DETECTED; CORONAVIRUS HKU1-RESP PCR NOT DETECTED; CORONAVIRUS NL63-RESP PCR NOT DETECTED; CORONAVIRUS OC43-RESP PCR NOT DETECTED; HUMAN METAPNEUMOVIRUS NOT DETECTED; INFLUENZA A- RESP PCR PANEL NOT DETECTED; RHINOVIRUS/ENTEROVIRUS NOT DETECTED; SARS-CoV-2 -RESP PCR PANEL NOT DETECTED
[2023-10-06 16:07] LABS: B. PARAPERTUSSIS- RESP PCR PAN NOT DETECTED; B. PERTUSSIS- RESP PCR PANEL NOT DETECTED; BASOPHILS # (AUTO) 0.1 10^3/uL (0.0-0.1); BASOPHILS % (AUTO) 0.9 %; C. PNEUMONIAE- RESP PCR PANEL NOT DETECTED; EOSINOPHILS # (AUTO) 0.2 10^3/uL (0.0-0.7); EOSINOPHILS % (AUTO) 3.9 %; HCT - HEMATOCRIT 35.4 % (37.0-47.0); HGB - HEMOGLOBIN 11.3 g/dL (12.0-16.0); INFLUENZA B - RESP PCR PANEL NOT DETECTED; LYMPHOCYTES # (AUTO) 1.7 10^3/uL (1.5-3.5); LYMPHOCYTES % (AUTO) 28.7 %; M. PNEUMONIAE- RESP PCR PANEL NOT DETECTED; MEAN CORPUSCULAR HEMOGLOBIN 28.5 pg (27.0-31.0); MEAN CORPUSCULAR HGB CONC 31.9 g/dL (32.0-36.0); MEAN CORPUSCULAR VOLUME 89.4 fL (81.0-99.0); MEAN PLATELET VOLUME 12.5 fL (7.9-10.8); MONOCYTES # (AUTO) 0.5 10^3/uL (0.0-1.0); MONOCYTES % (AUTO) 8.8 %; NEUTROPHILS # (AUTO) 3.4 10^3/uL (1.5-6.6); NEUTROPHILS % (AUTO) 57.5 %; PARAINFLUENZA VIRUS 1 NOT DETECTED; PARAINFLUENZA VIRUS 2 NOT DETECTED; PARAINFLUENZA VIRUS 3 NOT DETECTED; PARAINFLUENZA VIRUS 4 NOT DETECTED; PLT - PLATELET COUNT 235 10^3/uL (130-450); RED BLOOD COUNT 3.96 10^6/uL (4.20-5.40); RED CELL DISTRIBUTION WIDTH 13.5 % (12.0-15.0); RSV- RESP PCR PANEL NOT DETECTED; WHITE BLOOD COUNT 5.9 x10^3/uL (4.8-10.8)
[2023-10-06 16:08] LABS: ALBUMIN 3.7 g/dL (3.2-5.5); ALBUMIN/GLOBULIN RATIO 1.2 (1.0-2.2); BILIRUBIN,TOTAL 0.3 mg/dL (0.2-1.0); CALCIUM 9.1 mg/dL (8.5-10.3); CREATININE 0.6 mg/dL (0.6-1.3); POTASSIUM 4.1 mmol/L (3.5-4.5); TOTAL PROTEIN 6.9 g/dL (6.4-8.9)
[2023-10-06 16:49] VITALS: BP 136/78; O2SAT 97
== END 2023-10-06 13:00 | disposition home or self-care (01) ==
LOC: ED 12:24
DX: J45.901 Unspecified asthma with (acute) exacerbation (principal)
CPT/HCPCS: 36415; 80053; 83690; 84484; 85025; 87633; 94640; 99284